=== PATIENT | male | born 1965 | race Two or more races ===

== ENCOUNTER 2018-04-16 08:12 | Outpatient (CLI) | payer OTHER | END 2018-04-16 08:21 | disposition home or self-care (01) | LOC: SONOGRAMA 08:12 → MAMO-SONO 08:15 → SONOGRAMA 08:21 | DX: R10.9 Unspecified abdominal pain (principal) ==

== ENCOUNTER 2018-04-16 08:59 | Outpatient (CLI) | payer OTHER | END 2018-04-16 09:15 | disposition home or self-care (01) | LOC: LAB 08:59 | DX: Z12.11 Encounter for screening for malignant neoplasm of colon (principal); N40.0 Benign prostatic hyperplasia without lower urinary tract symptoms; E55.9 Vitamin D deficiency, unspecified; E78.49 Other hyperlipidemia; E03.8 Other specified hypothyroidism ==